=== PATIENT | male | born 1980 | race Two or more races ===

== ENCOUNTER 2020-08-21 18:48 | Inpatient (IN) | payer MEDICAID, OTHER ==
[~2020-08-21] VITALS: Ht 170.2 cm; Wt 92.6 kg
[2020-08-21] MEDS ORDERED: SODIUM CHLORIDE 0.9% 1,000 ML IV ONE (19:15)
[2020-08-21 19:44] LABS: Basophils # (auto) 0.1 10 ^3/uL (0-0.2); Lymphocytes # (auto) 0.9 10 ^3/uL (0.4-5.4); Mean Corpuscular Volume 98.6 fL (80.0-100.0); Monocytes # (auto) 0.5 10 ^3/uL (0-1.3)
[2020-08-21 19:46] LABS: Basophils % (auto) 1.1 % (0.0-2.0); Eosinophils # (auto) 0.1 10 ^3/uL (0-0.8); Eosinophils % (auto) 0.7 % (0.0-7.0); Hematocrit 37.9 % (41.0-53.0); Hemoglobin 13.3 g/dL (13.5-17.5); Lymphocytes % (auto) 9.6 % (10.0-50.0); Mean Corpuscular Hemoglobin 34.6 pg (28.0-32.0); Mean Corpuscular Hgb Conc. 35.1 g/dL (32.0-36.0); Neutrophils # (auto) 8.1 10 ^3/uL (1.6-8.6); Neutrophils % (auto) 83.6 % (37.0-80.0); Red Blood Cells 3.84 10^6/uL (4.5-5.90); Red Cell Distribution Width 11.9 % (11.8-14.3); White Blood Cell 9.6 10^3/uL (4.4-10.8)
[2020-08-21 20:12] LABS: Alanine Aminotransferase 33 U/L (16-61); Albumin 3.6 g/dL (3.4-5.0); Anion Gap 9 (5-15); Aspartate Aminotransferase 29 U/L (15-37); BUN/Creatinine Ratio 9.4; Blood Urea Nitrogen 9 mg/dL (7-18); Calcium 7.9 mg/dL (8.5-10.1); Carbon Dioxide 22 mmol/L (21-32); Chloride 110 mmol/L (98-107); GFR African American 113 mL/min; GFR Non-African American 93 mL/min; Glucose 112 mg/dL (74-106); Magnesium 1.8 mg/dL (1.6-2.6); Potassium 3.7 mmol/L (3.5-5.1); Sodium 141 mmol/L (136-145)
[2020-08-21 20:28] LABS: CRP High Sensitivity 0.02 mg/dL (< 0.3)
[2020-08-21 20:54] LABS: Alkaline Phosphatase 61 U/L (45-117); Bilirubin, Total 0.3 mg/dL (0.2-1.0); Total Protein 7.4 g/dL (6.4-8.2)
[2020-08-21 22:16] LABS: Urine Amorphous Crystal FEW /hpf (None Seen); Urine Bacteria NONE SEEN /hpf (None Seen); Urine Blood Negative /uL (Negative); Urine Hyaline Cast FEW /lpf (0 - 2); Urine Mucus FEW (None Seen); Urine Specific Gravity 1.025 (1.001-1.035); Urine WBC 1 /hpf (0 - 3)
[2020-08-22] MEDS ORDERED: HYDROcodone-ACET 5/325MG TAB PO PRN (02:00)
[2020-08-22] MEDS ORDERED: MORPHINE SULFATE INJECTION 2 MG/ML SYRG IV PRN (02:00)
[2020-08-22] MEDS ORDERED: DOCUSATE SOD 100 MG CAP PO PRN (02:00)
[2020-08-22] MEDS ORDERED: NITROGLYCERIN 0.4 MG SL TAB SL PRN (02:00)
[2020-08-22] MEDS ORDERED: ACETAMINOPHEN 325 MG TAB PO PRN (02:00)
[2020-08-22] MEDS ORDERED: ONDANSETRON HCL 4 MG/2 ML VIAL IV PRN (02:00)
[2020-08-22 09:27] VITALS: BP 149/104
[2020-08-22] MEDS: FAMOTIDINE 20 MG TAB PO SCH ×2 (10:13→21:48)
[2020-08-22] MEDS: ZINC SULFATE 220mg CAP or TAB PO SCH (10:13)
[2020-08-22] MEDS: ENOXAPARIN SOD 40 MG/0.4 ML SYRINGE SC SCH (10:13)
[2020-08-22] MEDS: MULTIPLE VITAMIN TAB PO SCH (10:14)
[2020-08-22] MEDS: ASCORBIC ACID 500 MG TAB PO SCH ×2 (10:14→21:48)
[2020-08-22] MEDS: hydrALAZINE HCL 20 MG/ML VL IV PRN ×2 (10:15→17:46)
[2020-08-22] MEDS ORDERED: ALBU1AER4 IN (10:16)
[2020-08-22 10:20] LABS: Basophils # (auto) 0.1 10 ^3/uL (0-0.2); Hemoglobin 13.5 g/dL (13.5-17.5); Lymphocytes # (auto) 1.6 10 ^3/uL (0.4-5.4); Monocytes # (auto) 0.4 10 ^3/uL (0-1.3); Neutrophils # (auto) 5.3 10 ^3/uL (1.6-8.6); White Blood Cell 7.5 10^3/uL (4.4-10.8)
[2020-08-22 10:24] LABS: Basophils % (auto) 1.2 % (0.0-2.0); Eosinophils # (auto) 0.2 10 ^3/uL (0-0.8); Eosinophils % (auto) 2.2 % (0.0-7.0); Lymphocytes % (auto) 20.9 % (10.0-50.0); Mean Corpuscular Hemoglobin 34.9 pg (28.0-32.0); Mean Corpuscular Hgb Conc. 35.6 g/dL (32.0-36.0); Monocytes % (auto) 5.4 % (0.0-12.0); Neutrophils % (auto) 70.3 % (37.0-80.0); Nucleated Red Blood Cells % 0.1 %; Red Blood Cells 3.88 10^6/uL (4.5-5.90)
[2020-08-22 12:16] LABS: Albumin 3.6 g/dL (3.4-5.0); BUN/Creatinine Ratio 7.3; Bilirubin, Total 0.8 mg/dL (0.2-1.0); Calcium 8.1 mg/dL (8.5-10.1); Potassium 3.2 mmol/L (3.5-5.1); Total Protein 7.3 g/dL (6.4-8.2)
[2020-08-22 12:57] VITALS: BP 147/97
[2020-08-22 16:52] VITALS: BP 157/105
[2020-08-22 22:00] VITALS: BP 143/84
[2020-08-23 05:00] VITALS: BP 135/97
[2020-08-23 05:54] LABS: Basophils # (auto) 0.1 10 ^3/uL (0-0.2); Basophils % (auto) 1.4 % (0.0-2.0); Eosinophils # (auto) 0.3 10 ^3/uL (0-0.8); Hematocrit 42.5 % (41.0-53.0); Hemoglobin 14.7 g/dL (13.5-17.5); Lymphocytes # (auto) 1.5 10 ^3/uL (0.4-5.4); Lymphocytes % (auto) 21.8 % (10.0-50.0); Mean Corpuscular Hgb Conc. 34.5 g/dL (32.0-36.0); Mean Corpuscular Volume 98.5 fL (80.0-100.0); Monocytes # (auto) 0.5 10 ^3/uL (0-1.3); Monocytes % (auto) 6.6 % (0.0-12.0); Neutrophils # (auto) 4.6 10 ^3/uL (1.6-8.6); Neutrophils % (auto) 66.2 % (37.0-80.0); Nucleated Red Blood Cells % 0.2 %; Red Blood Cells 4.32 10^6/uL (4.5-5.90)
[2020-08-23 06:01] LABS: Potassium 4.3 mmol/L (3.5-5.1)
[2020-08-23 06:09] LABS: Magnesium 2.4 mg/dL (1.6-2.6)
[2020-08-23 06:12] LABS: Albumin 3.9 g/dL (3.4-5.0); BUN/Creatinine Ratio 8.5; Calcium 8.8 mg/dL (8.5-10.1); Total Protein 7.9 g/dL (6.4-8.2)
[2020-08-23 08:00] VITALS: BP 138/103
[2020-08-23 08:30] VITALS: BP 139/100
[2020-08-23 08:48] LABS: Alcohol, Urine < 3.0 mg/dL (0-10); Amphetamine Screen, Urine NEGATIVE (NEGATIVE); Barbiturate Scree,Urine NEGATIVE (NEGATIVE); Benzodiazephine Screen, Urine NEGATIVE (NEGATIVE); Cannabinoid Screen, Urine NEGATIVE (NEGATIVE); Cocaine Screen, Urine NEGATIVE (NEGATIVE); Opiate Scree,Urine NEGATIVE (NEGATIVE); Phencyclidine Screen, Urine NEGATIVE (NEGATIVE)
[2020-08-23] MEDS: MULTIPLE VITAMIN TAB PO SCH (10:11)
[2020-08-23] MEDS: ZINC SULFATE 220mg CAP or TAB PO SCH (10:11)
[2020-08-23] MEDS: FAMOTIDINE 20 MG TAB PO SCH ×2 (10:11→21:48)
[2020-08-23] MEDS: ASPirin-EC 81 mg tab PO SCH (10:11)
[2020-08-23] MEDS: ASCORBIC ACID 500 MG TAB PO SCH ×2 (10:11→21:49)
[2020-08-23] MEDS: METOPROLOL TARTRATE 25 MG TAB PO SCH ×2 (10:12→21:48)
[2020-08-23] MEDS: ENOXAPARIN SOD 40 MG/0.4 ML SYRINGE SC SCH (10:13)
[2020-08-23] MEDS ORDERED: LISINOPRIL 5 MG TAB PO ONE (12:00)
[2020-08-23] MEDS ORDERED: cloNIDine HCL 0.1 MG TAB PO PRN (12:00)
[2020-08-23 12:30] VITALS: BP 126/94
[2020-08-23 17:00] VITALS: BP 136/88
[2020-08-23 22:00] VITALS: BP 108/72
[2020-08-23] MEDS ORDERED: ATORVASTATIN 20 MG TAB PO SCH (22:00)
[2020-08-24 05:00] VITALS: BP 110/66
[2020-08-24 05:49] LABS: Basophils # (auto) 0.1 10 ^3/uL (0-0.2); Eosinophils # (auto) 0.4 10 ^3/uL (0-0.8); Hemoglobin 14.7 g/dL (13.5-17.5); Mean Corpuscular Hemoglobin 35.4 pg (28.0-32.0); Monocytes # (auto) 0.5 10 ^3/uL (0-1.3); Nucleated Red Blood Cells % 0.1 %; Red Cell Distribution Width 12.1 % (11.8-14.3)
[2020-08-24 05:55] LABS: Basophils % (auto) 1.3 % (0.0-2.0); Eosinophils % (auto) 5.1 % (0.0-7.0); Hematocrit 40.8 % (41.0-53.0); Lymphocytes # (auto) 1.4 10 ^3/uL (0.4-5.4); Lymphocytes % (auto) 19.2 % (10.0-50.0); Mean Corpuscular Hgb Conc. 36.2 g/dL (32.0-36.0); Mean Corpuscular Volume 97.9 fL (80.0-100.0); Monocytes % (auto) 6.9 % (0.0-12.0); Neutrophils # (auto) 4.9 10 ^3/uL (1.6-8.6); Neutrophils % (auto) 67.5 % (37.0-80.0); Red Blood Cells 4.16 10^6/uL (4.5-5.90); White Blood Cell 7.3 10^3/uL (4.4-10.8)
[2020-08-24 06:23] LABS: Albumin 3.9 g/dL (3.4-5.0); Calcium 8.8 mg/dL (8.5-10.1); Potassium 4.1 mmol/L (3.5-5.1)
[2020-08-24 06:26] LABS: BUN/Creatinine Ratio 14.3; Bilirubin, Total 0.9 mg/dL (0.2-1.0)
[2020-08-24] MEDS: ZINC SULFATE 220mg CAP or TAB PO SCH (08:55)
[2020-08-24] MEDS: MULTIPLE VITAMIN TAB PO SCH (08:56)
[2020-08-24] MEDS: FAMOTIDINE 20 MG TAB PO SCH (08:56)
[2020-08-24] MEDS: ASPirin-EC 81 mg tab PO SCH (08:56)
[2020-08-24] MEDS: METOPROLOL TARTRATE 25 MG TAB PO SCH (08:56)
[2020-08-24] MEDS: ASCORBIC ACID 500 MG TAB PO SCH (08:57)
[2020-08-24 08:59] VITALS: BP 127/83
[2020-08-24 09:52] VITALS: BP 127/83
[2020-08-24] MEDS: ENOXAPARIN SOD 40 MG/0.4 ML SYRINGE SC SCH (10:00)
[2020-08-24] MEDS ORDERED: LISINOPRIL 5 MG TAB PO SCH (10:00)
== END 2020-08-24 10:55 | disposition home or self-care (01) | DRG 392 ==
LOC: EDBD 18:48 → ER 18:48 → TELE 08-22 01:47 → TELE-WESTW 08-22 08:00
PROVIDERS: ADMIT Nurse Practitioner Family; ATTEND Internal Medicine
DX: K52.9 Noninfective gastroenteritis and colitis, unspecified (principal); R55 Syncope and collapse; E78.5 Hyperlipidemia, unspecified; I10 Essential (primary) hypertension; E87.6 Hypokalemia; J45.909 Unspecified asthma, uncomplicated; E66.9 Obesity, unspecified; E86.0 Dehydration; E86.1 Hypovolemia; Z20.822 Contact with and (suspected) exposure to COVID-19; Z79.899 Other long term (current) drug therapy
CPT/HCPCS: 36415; 71045; 80053; 80061; 80307; 81001; 82728; 83036; 83735; 84443; 84484; 85025; 85379; 86141; 87426; 93005; 93306; 93886; 96360; G0378

== ENCOUNTER 2020-08-31 17:39 | Emergency (ER) | payer MEDICAID ==
[~2020-08-31] VITALS: Ht 170.2 cm; Wt 88.9 kg
[~2020-08-31 17:39] MED LIST: ALBU1AER4 IN
[2020-08-31 18:18] LABS: Urine WBC None Seen /hpf (0 - 3)
[2020-08-31 18:48] LABS: Urine Bacteria NONE SEEN /hpf (None Seen); Urine Blood Negative /uL (Negative); Urine Specific Gravity 1.001 (1.001-1.035)
[2020-08-31 18:57] LABS: Potassium 3.7 mmol/L (3.5-5.1)
[2020-08-31] MEDS ORDERED: ONDANSETRON HCL 4 MG/2 ML VIAL IV ONE (19:00)
[2020-08-31] MEDS ORDERED: LACTATED RINGER'S 2,000 ML IV ONE (19:00)
[2020-08-31 19:01] LABS: Basophils # (auto) 0.1 10 ^3/uL (0-0.2); Basophils % (auto) 0.9 % (0.0-2.0); Eosinophils # (auto) 0 10 ^3/uL (0-0.8); Eosinophils % (auto) 0.5 % (0.0-7.0); Hematocrit 40.8 % (41.0-53.0); Hemoglobin 14.1 g/dL (13.5-17.5); Lymphocytes # (auto) 1.2 10 ^3/uL (0.4-5.4); Lymphocytes % (auto) 12.1 % (10.0-50.0); Mean Corpuscular Hemoglobin 33.5 pg (28.0-32.0); Mean Corpuscular Hgb Conc. 34.5 g/dL (32.0-36.0); Mean Corpuscular Volume 97.3 fL (80.0-100.0); Monocytes # (auto) 0.6 10 ^3/uL (0-1.3); Neutrophils # (auto) 7.8 10 ^3/uL (1.6-8.6); Neutrophils % (auto) 80.5 % (37.0-80.0); Nucleated Red Blood Cells % 0.1 %; Platelet Count (auto) 351 10^3/uL (140-450); Red Blood Cells 4.19 10^6/uL (4.5-5.90); Red Cell Distribution Width 11.9 % (11.8-14.3); White Blood Cell 9.7 10^3/uL (4.4-10.8)
[2020-08-31 19:04] LABS: Albumin 4.2 g/dL (3.4-5.0); BUN/Creatinine Ratio 7.5; Calcium 8.5 mg/dL (8.5-10.1)
[2020-08-31 20:49] LABS: Creatine Kinase IFCC 128 U/L (39-308)
[2020-09-01 06:04] VITALS: BP 123/82
== END 2020-09-01 06:08 | disposition home or self-care (01) ==
LOC: ER 17:39
DX: I10 Essential (primary) hypertension (principal); R07.89 Other chest pain; R55 Syncope and collapse; J45.909 Unspecified asthma, uncomplicated; E78.5 Hyperlipidemia, unspecified
CPT/HCPCS: 36415; 80053; 81001; 82550; 83605; 84443; 84484; 85025; 85049; 93005; 96361; 96374; 99285; J2405

== ENCOUNTER 2020-11-02 19:46 | Emergency (ER) | payer MEDICAID ==
[~2020-11-02] VITALS: Ht 170.2 cm; Wt 86.2 kg
[2020-11-02 21:10] LABS: Basophils # (auto) 0.1 10 ^3/uL (0-0.2); Basophils % (auto) 1.2 % (0.0-2.0); Eosinophils # (auto) 0.1 10 ^3/uL (0-0.8); Eosinophils % (auto) 1.5 % (0.0-7.0); Hematocrit 41.7 % (41.0-53.0); Hemoglobin 14.4 g/dL (13.5-17.5); Lymphocytes # (auto) 1.3 10 ^3/uL (0.4-5.4); Lymphocytes % (auto) 17.9 % (10.0-50.0); Mean Corpuscular Hemoglobin 33.7 pg (28.0-32.0); Mean Corpuscular Hgb Conc. 34.5 g/dL (32.0-36.0); Mean Corpuscular Volume 97.8 fL (80.0-100.0); Monocytes # (auto) 0.5 10 ^3/uL (0-1.3); Monocytes % (auto) 6.6 % (0.0-12.0); Neutrophils # (auto) 5.4 10 ^3/uL (1.6-8.6); Neutrophils % (auto) 72.8 % (37.0-80.0); Nucleated Red Blood Cells % 0.2 %; Red Blood Cells 4.26 10^6/uL (4.5-5.90); Red Cell Distribution Width 12.3 % (11.8-14.3); White Blood Cell 7.3 10^3/uL (4.4-10.8)
[2020-11-02 21:27] LABS: Albumin 3.9 g/dL (3.4-5.0); Anion Gap 7 (5-15); Blood Urea Nitrogen 10 mg/dL (7-18); Calcium 8.6 mg/dL (8.5-10.1); Carbon Dioxide 24 mmol/L (21-32); Chloride 107 mmol/L (98-107); Glucose 100 mg/dL (74-106); Sodium 138 mmol/L (136-145)
[2020-11-02 21:33] LABS: Alanine Aminotransferase 30 U/L (16-61); Alkaline Phosphatase 64 U/L (45-117); Aspartate Aminotransferase 25 U/L (15-37); BUN/Creatinine Ratio 11.2; Bilirubin, Total 0.4 mg/dL (0.2-1.0); GFR African American 123 mL/min; GFR Non-African American 102 mL/min; Total Protein 7.6 g/dL (6.4-8.2)
[2020-11-03 00:50] VITALS: BP 132/88
== END 2020-11-03 01:07 | disposition home or self-care (01) ==
LOC: EDBD 19:46 → ER 20:03
DX: R51.9 Headache, unspecified (principal); I10 Essential (primary) hypertension; J45.909 Unspecified asthma, uncomplicated; E78.5 Hyperlipidemia, unspecified; Z79.899 Other long term (current) drug therapy
CPT/HCPCS: 36415; 71045; 80053; 83605; 83880; 84484; 85025; 93005